=== PATIENT | female | born 1965 | race Caucasian/White ===

== ENCOUNTER 2017-02-15 10:28 | Emergency (ER) | payer SELFPAY ==
[2017-02-15 11:41] LABS: HEMOGLOBIN 17.8 gm/dl (12.3-15.3); RED BLOOD COUNT 5.77 M/UL (4.00-5.10); WHITE BLOOD COUNT 6.9 K/UL (4.5-11.0)
[2017-02-15 12:09] LABS: BUN/CREATININE RATIO 18 (0-10)
== END 2017-02-15 14:40 | disposition home or self-care (01) ==
LOC: ER1 10:28
PROVIDERS: Physician Assistant
DX: R07.89 Other chest pain (principal); E78.5 Hyperlipidemia, unspecified; F17.200 Nicotine dependence, unspecified, uncomplicated; Z88.1 Allergy status to other antibiotic agents
CPT/HCPCS: 36415; 71010; 80053; 82550; 82553; 83874; 84484; 85025; 85379; 93005; 99285

== ENCOUNTER 2021-05-10 17:41 | Emergency (ER) | payer OTHER ==
[~2021-05-10 17:41] MED LIST: GAS RELIEF80 MG PO; IBUPROFEN800 MG PO; KLOR-CON 1010 MEQ PO; LEVAQUIN750 MG PO; MEDROL4 MG PO; NITROSTAT0.4 MG SL; NORCO 7.5-3251 EACH PO; PANTOPRAZOLE SO40 MG PO
== END 2021-05-10 18:53 | disposition left against medical advice (07) ==
LOC: ER1 17:41
DX: Z53.21 Procedure and treatment not carried out due to patient leaving prior to being seen by health care provider (principal)

== ENCOUNTER → 2021-05-27 | Outpatient (CLI) | payer OTHER | LOC: KOH-I 13:58 | DX: M54.5 Low back pain (principal); M51.36 Other intervertebral disc degeneration, lumbar region | CPT/HCPCS: 72110 ==

== ENCOUNTER → 2021-12-29 | Outpatient (CLI) | payer OTHER | LOC: EXRD 14:52 | DX: M25.552 Pain in left hip (principal) | CPT/HCPCS: 73502 ==

== ENCOUNTER → 2022-01-23 | Outpatient (CLI) | payer OTHER | LOC: KOH-I 15:08 | DX: M25.571 Pain in right ankle and joints of right foot (principal); R22.42 Localized swelling, mass and lump, left lower limb | CPT/HCPCS: 73610 ==

== ENCOUNTER → 2022-01-31 | Outpatient (CLI) | payer OTHER | LOC: KOH-I 09:00 | DX: M84.371A Stress fracture, right ankle, initial encounter for fracture (principal); M25.371 Other instability, right ankle | CPT/HCPCS: 73721 ==